=== PATIENT | male | born 1980 | race African-American/Black ===

== ENCOUNTER 2018-11-05 20:51 | Inpatient (IN) ==
[2018-11-05] MEDS ORDERED: NS 1,000 ML IV ONE (21:19)
[2018-11-05] MEDS ORDERED: NS 500 ML IV ONE (21:19)
[2018-11-05] MEDS ORDERED: HUMULIN R IV ONE ×2 (21:22→23:23)
[2018-11-05 21:25] LABS: BLOOD TYPE ARTERIAL; SAMPLE BLOOD
[2018-11-05 21:26] LABS: BE -27.3 mmoll (-3.0-3.0); HCO3-(ACT) 3.6 mmoll (20.0-26.0); METHB 1.3 % (0.0-1.5); O2(CT) 16.9 mL/dL (15.0-23.0); O2HB 96.8 % (95.0-99.0); PO2(98.6) 159 mmHg (60-100); SAO2 99.8 % (95.0-100.0); THB 12.2 g/dL (11.5-17.4)
[2018-11-05 21:32] LABS: PCO2(98.6) 9 mmHg (35-45); pH(98.6) 6.99 (7.35-7.45)
[2018-11-05 21:33] LABS: ALLEN TEST YES; MODALITY ROOM AIR
--- NOTE | 2018-11-05 21:38 | PROVIDER DOCUMENTATION ---
This chart was entered by Jennifer Ybarra Scribe, acting as scribe for Raf Fry MD. HPI-General Adult - General Chief Complaint: High Blood Sugar Stated Complaint: HIGH BS, WEAK Time Seen by Provider: 11/05/18 21:07 Source: patient Allergies/Adverse Reactions: Patient Allergies Allergy/AdvReac Type Severity Reaction Status Date / Time Penicillins Allergy RASH Verified 08/17/14 04:13 Home Medications: Home Medication List Medication Instructions Recorded Confirmed Last Taken Type Insulin Aspart [Novolog] 100 unit SQ PRN PRN 08/17/14 11/05/18 Unknown History Insulin Detemir [Levemir] 15 units SQ DAILY 08/17/14 11/05/18 Unknown History - History of Present Illness -Gen Adult Nature of Presenting Problems: pt is 38/m presenting to ED w/ iddm. Pt was in hospital, in [facility]. until yesterday and flew home yesterday. He was told he was in DKA, was septic and has BS over 1000 in [place]. He was doing better, and today he started having c/p, SOB, vomiting and hyperventilating. FSBS in triage over 400. Location of Pain/Injury: reports: chest Pain Radiation: reports: no radiation Quality of Pain: reports: aching Severity: reports: moderate Onset/Duration: reports: just prior to arrival Timing: reports: still present Context/Activities at Onset: reports: none Modifying Factors: improves with: nothing Associated Symptoms: reports: chest pain, loss of appetite, shortness of breath, vomiting, weakness. denies: cough, fever/chills Similar Symptoms Previously?: Yes Recently seen or treated by another doctor?: Yes - Diabetes Related Context Context: reports: high blood sugar (400+), prior DKA hospitalization Review of Systems - Adult - REVIEW OF SYSTEMS - ADULT Constitutional: denies: chills, fever Eyes: reports: no symptoms reported Ears, Nose, Mouth & Throat: reports: no symptoms reported Cardiovascular: reports: chest pain Respiratory: reports: shortness of breath. denies: cough, wheezing Gastrointestinal: reports: nausea, vomiting. denies: abdominal pain, diarrhea Genitourinary: reports: no symptoms reported Musculoskeletal: reports: no symptoms reported Integumentary: reports: no symptoms reported Neurological: denies: dizziness/vertigo, headache/migraines Psychiatric: reports: no symptoms reported Endocrine: reports: no symptoms reported Hematologic/Lymphatic: reports: no symptoms reported Allergic/Immunologic: reports: no symptoms reported All Other Systems: Reviewed and Negative Past History - Adult - PAST MEDICAL HISTORY-ADULT Review of Records: reports: Old Records Reviewed, Nursing Assessment Review, Medications Reviewed, Social history reviewed & non-contributory. Major Childhood Illnesses: reports: denies history Cardiovascular: reports: denies history Respiratory: reports: denies history Gastrointestinal: reports: denies history Genitourinary: reports: denies history Musculoskeletal: reports: denies history Neurological: reports: denies history, other (diabetic neuropathy) Psychiatric: reports: denies history Endocrine/Immune: reports: Diabetes Other Conditions: reports: denies history - PRIOR SURGERIES/PROCEDURES Surgical/Procedure History: reports: orthopedic (extremity) - FAMILY HISTORY Family History: reviewed, not pertinent - SOCIAL HISTORY Smoking: denies, non-smoker Substance Use: none/never Alcohol Use Frequency: occasionally Number of drinks per typical drinking period:: 2 drinks Living Situation: family Physical Exam-General - PHYSICAL EXAM-ADULT Initial Vital Signs Reviewed: Yes - CONSTITUTIONAL General Appearance: moderate distress, thin, other (pt is grimacing, hyperventilating at time of exam) - EYES Eyes: PERRL/EOMI, pink conjunctivae - HEAD, EARS, NOSE, MOUTH & THROAT HENMT: negative: moist mucous membranes (DRY) - NECK Neck: non-tender, full range of motion, supple, normal inspection - RESPIRATORY Respiratory: chest non-tender, lungs clear, increased rate - CARDIOVASCULAR Cardiovascular: tachycardia (117) - GASTROINTESTINAL (ABDOMEN) Abdominal Exam: soft - LYMPHATIC Lymphatic: no adenopathy - MUSCULOSKELETAL Back Exam: normal inspection, no CVA tenderness, no vertebral tenderness Extremity: normal range of motion, non-tender, normal gait, normal inspection - SKIN Integumentary: normal color, warm/dry - NEUROLOGIC Neurologic: grossly normal - PSYCHIATRIC Psych/Mental Status: normal mood/affect, normal thought content, normal thought process, oriented x 3 Progress - PLAN OF CARE/RESULTS Progress/Plan/Lab Results: Vital Signs - 8 hr 11/05/18 20:55 Pulse Rate 117 H Respiratory Rate 33 H Blood Pressure 144/94 O2 Sat by Pulse Oximetry 99 Orders Category Date Time Status Finger Stick Blood Sugar (ED) DIRECTED Care 11/05/18 21:04 Active IV Insertion ORDERED Care 11/05/18 21:19 Ordered Intake and Output-Strict ORDERED Care 11/05/18 21:19 Ordered Nursing- Obtain EKG ONCE Care 11/05/18 21:04 Active Repeat Vital Signs .Blood Pressure Care 11/05/18 21:19 Ordered Repeat Vital Signs .Heart Rate Care 11/05/18 21:19 Ordered Repeat Vital Signs .Oxygen Saturation Care 11/05/18 21:19 Ordered Repeat Vital Signs .Respiratory Rate Care 11/05/18 21:19 Ordered ABG [RESP] Routine Lab 11/05/18 21:04 Ordered CBC WITH DIFF [HEME] Stat Lab 11/05/18 21:04 Ordered COMPREHENSIVE METABOLIC PANEL [CHEM] Stat Lab 11/05/18 21:[address] W/POSS RFLX CULT [URINALYSIS] Stat Lab 11/05/18 21:04 Uncollected EKG [EKG] Stat Ther 11/05/18 21:04 Ordered Result Diagrams: 11/05/18 21:04 11/05/18 21:58 - XRAY 1 XRAY Study: Chest, Abdomen XRAY Interpretation: difuse bowel gas, no infiltrates, no free air Departure - Departure Date of Disposition Decision: 11/06/18 Time of Disposition Decision: 02:00 DIAGNOSIS: DKA (diabetic ketoacidoses) Qualifiers: Diabetes mellitus type: type 2 Diabetes mellitus complication detail: without coma Qualified Code(s): E11.10 - Type 2 diabetes mellitus with ketoacidosis without coma Nausea and vomiting Qualifiers: Vomiting type: vomiting of fecal matter Qualified Code(s): R11.13 - Vomiting of fecal matter Disposition: ADMITTED INPATIENT 09 Certified Medical Emergency: Emergent Condition: Serious - Critical Care Note This patient required my direct & personal management of CC.: Yes Total Time (mins): 61 Critical Care Statement: This patient required my direct personal management to treat or rule out processes, the absence of which, could potentiallly result in sudden, clinically significant life or limb threatening deterioration. Attestation - Physician/ MANDY Attestation Patient care was provided by Advanced Practice Provider:: No The physician spent face to face time with patient:: Yes Advanced Practice Provider documentation review:: Supervising physician onsite and consulted in the evaluation and care of this patient. The physician did have a face to face encounter with the patient. This chart was documented by the indicated scribe, (Jennifer Ybarra, Dale) and accurately reflects the services I performed and decisions made by me, Raf Fry MD, as attested by the provider's signature.
[2018-11-05] MEDS ORDERED: LEVAQUIN 750 MG/D5W 750 MG/150 ML IVPB IV ONE (22:11)
[2018-11-05 22:24] LABS: BASO# 0.01 X1000 (0.0-0.2); BASO% 0.1 % (0.0-0.8); HEMATOCRIT 35.8 % (42.0-52.0); HEMOGLOBIN 11.6 g/dL (14.0-18.0); IMM GRAN# 0.13 X1000 (0.0-0.04); IMM GRAN% 1.1 % (0.0-0.5); LYMPH# 1.22 X1000 (1.2-3.4); LYMPH% 10.3 % (20.5-51.1); MCH 28.5 PG (27-31); MCHC 32.4 g/dL (33-37); MONO# 0.05 X1000 (0.11-0.59); MONO% 0.4 % (1.7-9.3); MPV 10.4 FL (7.4-10.4); NEUT# 10.41 X1000 (1.4-6.5); NEUT% 88.1 % (42.2-75.2); PLT 430 X1000 (130-400); RBC 4.07 XMIL (4.7-6.1); RDW 12.5 % (11.5-14.5); WBC 11.82 X1000 (4.8-10.8)
[2018-11-05 22:34] LABS: BILIRUBIN URINE NEGATIVE (NEGATIVE); BLOOD URINE 1+ (NEGATIVE); KETONE URINE 3+(Large) mg/dL (NEGATIVE); LEUKOCYTES URINE TRACE (NEGATIVE); NITRITE URINE POSITIVE (NEGATIVE); PROTEIN URINE 1+(30 mg/dL) mg/dL (NEGATIVE); SP GRAVITY URINE 1.025; UROBILINOGEN URINE NORMAL
[2018-11-05 22:35] LABS: CLARITY CLEAR (CLEAR); COLOR YELLOW
[2018-11-05 22:36] LABS: URINE BACTERIA 1+ /HFP; URINE EPITHELIAL CELLS <10 /HPF (<10); URINE RBC <10 /HPF (<10); URINE SOURCE CLEAN CATCH; URINE WBC <10 /HPF (<10)
[2018-11-05 22:49] LABS: ESTIMATED GFR > 60
--- NOTE | 2018-11-05 22:51 | EKG Report ---
Test Performed on : 11/05/2018 9:16:29 PM Test Reason : tachycardi hx arrythmia Blood Pressure : / mmHG Vent. Rate : 109 BPM Atrial Rate : 109 BPM P-R Int : 142 ms QRS Dur : 094 ms QT Int : 342 ms P-R-T Axes : 072 070 026 degrees QTc Int : 460 ms Sinus tachycardia. Otherwise normal ECG No previous ECGs available Unconfirmed Result
[2018-11-05 22:52] LABS: AGAP 39; ALBUMIN 4.2 g/dL (3.5-5.0); ALKALINE PHOSPHATASE 98 U/L (32-122); BUN 31 mg/dL (8-22); CALCIUM 11.1 mg/dL (8.8-10.2); CHLORIDE 91 mmol/L (98-107); COSMO 294; CREATININE 1.2 mg/dL (0.7-1.2); GOT 44 U/L (10-34); GPT 25 U/L (10-44); POTASSIUM 5.9 mmol/L (3.5-5.1); SODIUM 132 mmol/L (136-145); TCO2 3 mmol/L (25-35); TOTAL PROTEIN 7.7 g/dL (6.3-8.3)
[2018-11-05 22:55] LABS: GLUCOSE 507 mg/dL (70-104)
[2018-11-05] MEDS ORDERED: NS 2,000 ML ONE (23:29)
[2018-11-05] MEDS ORDERED: NS 1,000 ML, NS 1,000 ML IV ONE ×2 (23:41)
[2018-11-06] MEDS: NS 1,000 ML IV SCH ×8 (01:55→20:17)
[2018-11-06 03:22] LABS: HEMOGLOBIN A1C 16.4 % (4.8-6.0)
[2018-11-06] MEDS ORDERED: POTASSIUM CHLORIDE 20% LIQUID PO PRN (03:30)
[2018-11-06] MEDS ORDERED: POTASSIUM CHLORIDE 10% LIQUID PO PRN (03:30)
[2018-11-06] MEDS ORDERED: SODIUM BICARBONATE 8.4% 100 MEQ in STERILE WATER INJ. 500 ML IV PRN (03:30)
[2018-11-06] MEDS ORDERED: SODIUM PHOSPHATE 30 MMOL in D5W 250 ML IV PRN (03:30)
[2018-11-06] MEDS ORDERED: POTASSIUM CHLORIDE 40 MEQ/SWI 40 MEQ/100 ML IVPB IV PRN (03:30)
[2018-11-06] MEDS ORDERED: D50W SYRINGE IV PRN (03:30)
[2018-11-06] MEDS ORDERED: ZOFRAN PO PRN (03:30)
[2018-11-06] MEDS ORDERED: HUMULIN R IV ONE (03:30)
[2018-11-06] MEDS ORDERED: HUMULIN R 100 UNIT in NS 99 ML IV SCH (03:30)
[2018-11-06 03:51] LABS: AGAP 25; BUN 28 mg/dL (8-22); CALCIUM 9.6 mg/dL (8.8-10.2); CHLORIDE 107 mmol/L (98-107); COSMO 289; CREATININE 1.1 mg/dL (0.7-1.2); ESTIMATED GFR > 60; GLUCOSE 247 mg/dL (70-104); MAGNESIUM 2.1 mg/dL (1.5-2.7); PHOSPHORUS 4.7 mg/dL (2.7-4.5); POTASSIUM 5.5 mmol/L (3.5-5.1); SODIUM 138 mmol/L (136-145); TCO2 6 mmol/L (25-35)
[2018-11-06] MEDS: D5 NS 1,000 ML IV SCH ×3 (04:33→20:37)
[2018-11-06 06:52] LABS: MAGNESIUM 1.9 mg/dL (1.5-2.7); PHOSPHORUS 2.5 mg/dL (2.7-4.5)
[2018-11-06 07:03] LABS: AGAP 19; BUN 24 mg/dL (8-22); CALCIUM 9.4 mg/dL (8.8-10.2); CHLORIDE 110 mmol/L (98-107); COSMO 280; ESTIMATED GFR > 60; GLUCOSE 76 mg/dL (70-104); SODIUM 139 mmol/L (136-145); TCO2 10 mmol/L (25-35)
--- NOTE | 2018-11-06 07:28 | Diag Imaging Result Doc PS360 ---
EXAM: FLAT/UPRIGHT ABD/1 VIEW CHEST 11/05/2018 HISTORY: nausea, vomiting TECHNIQUE: Flat and upright abdomen with PA chest COMMENT: There are no previous studies. The stomach contains some gas but is not particularly distended. There is some gas in the colon particularly the hepatic flexure. There is gaseous dilatation of some small bowel loops in the upper abdomen. There are calcifications in the vasa deferentia. No evidence of organomegaly or mass is present. The lungs are clear aside from some calcified granulomata in the left upper lobe. There is a calcified aorticopulmonary window node. The heart size and pulmonary vascularity are within normal limits. IMPRESSION: Ileus versus early small bowel obstruction. Electronically signed by Pio Mora 11/06/2018 7:26 AM
[2018-11-06] MEDS: POTASSIUM CHLORIDE 20 MEQ/SWI 20 MEQ/100 ML IVPB IV PRN (08:43)
[2018-11-06] MEDS: ZOFRAN IV PRN ×2 (10:28→18:56)
[2018-11-06 11:07] LABS: MAGNESIUM 1.6 mg/dL (1.5-2.7); PHOSPHORUS 1.6 mg/dL (2.7-4.5)
[2018-11-06 11:23] LABS: AGAP 12; BUN 20 mg/dL (8-22); CALCIUM 9.2 mg/dL (8.8-10.2); CHLORIDE 110 mmol/L (98-107); COSMO 279; CREATININE 0.9 mg/dL (0.7-1.2); ESTIMATED GFR > 60; GLUCOSE 145 mg/dL (70-104); POTASSIUM 4.7 mmol/L (3.5-5.1); SODIUM 137 mmol/L (136-145); TCO2 14 mmol/L (25-35)
[2018-11-06] MEDS ORDERED: KLOR-CON PO ONE (13:04)
[2018-11-06] MEDS ORDERED: ZOFRAN ODT PO PRN (13:41)
[2018-11-06 13:56] LABS: AGAP 10; BUN 18 mg/dL (8-22); CALCIUM 8.9 mg/dL (8.8-10.2); CHLORIDE 110 mmol/L (98-107); COSMO 275; CREATININE 0.9 mg/dL (0.7-1.2); ESTIMATED GFR > 60; GLUCOSE 126 mg/dL (70-104); MAGNESIUM 1.6 mg/dL (1.5-2.7); PHOSPHORUS 1.4 mg/dL (2.7-4.5); POTASSIUM 4.5 mmol/L (3.5-5.1); SODIUM 136 mmol/L (136-145); TCO2 16 mmol/L (25-35)
[2018-11-06] MEDS: MAGNESIUM SULFATE 2 GM/S.W.I. 2 GM/50 ML IVPB IV PRN (14:15)
[2018-11-06] MEDS ORDERED: DULCOLAX PR SCH (17:15)
[2018-11-06 18:18] LABS: SODIUM 137 mmol/L (136-145)
[2018-11-06 18:19] LABS: AGAP 9; BUN 17 mg/dL (8-22); CALCIUM 8.6 mg/dL (8.8-10.2); CHLORIDE 111 mmol/L (98-107); COSMO 276; CREATININE 0.9 mg/dL (0.7-1.2); ESTIMATED GFR > 60; GLUCOSE 106 mg/dL (70-104); PHOSPHORUS 1.1 mg/dL (2.7-4.5); POTASSIUM 4.4 mmol/L (3.5-5.1); TCO2 17 mmol/L (25-35)
[2018-11-06 22:09] LABS: AGAP 8; BUN 14 mg/dL (8-22); CALCIUM 8.5 mg/dL (8.8-10.2); CHLORIDE 110 mmol/L (98-107); COSMO 273; CREATININE 0.8 mg/dL (0.7-1.2); ESTIMATED GFR > 60; GLUCOSE 143 mg/dL (70-104); POTASSIUM 4.5 mmol/L (3.5-5.1); SODIUM 135 mmol/L (136-145); TCO2 18 mmol/L (25-35)
[2018-11-06 22:12] LABS: MAGNESIUM 1.9 mg/dL (1.5-2.7)
[2018-11-07 01:19] LABS: AGAP 10; BUN 12 mg/dL (8-22); CALCIUM 8.5 mg/dL (8.8-10.2); CHLORIDE 109 mmol/L (98-107); COSMO 273; CREATININE 0.8 mg/dL (0.7-1.2); ESTIMATED GFR > 60; GLUCOSE 93 mg/dL (70-104); MAGNESIUM 1.8 mg/dL (1.5-2.7); POTASSIUM 3.8 mmol/L (3.5-5.1); SODIUM 137 mmol/L (136-145); TCO2 18 mmol/L (25-35)
[2018-11-07 01:23] LABS: PHOSPHORUS 0.8 mg/dL (2.7-4.5)
[2018-11-07] MEDS: POTASSIUM CHLORIDE 20 MEQ/SWI 20 MEQ/100 ML IVPB IV PRN ×2 (02:08→07:58)
[2018-11-07] MEDS: D5 NS 1,000 ML IV SCH (02:09)
--- NOTE | 2018-11-07 02:34 | HISTORY AND PHYSICAL ---
PRIMARY CARE PHYSICIAN: Dr. Flanagan. CHIEF COMPLAINT: Weakness, high blood sugar. HISTORY OF PRESENT ILLNESS: This is a 38-year-old gentleman with a history of diabetes mellitus who presented to the emergency room complaining of abdominal pain, nausea and vomiting as well as high blood sugars. The patient states that he was in the hospital in [place], [place], until the , diagnosed with DKA as well as sepsis. He did state blood sugars were over 1000 on admission. On discharge, he was told that his sepsis was resolved although he is unaware of the source of the sepsis. He denies any fevers or chills. He comes today after flying home from [place] complaining of elevated blood sugars, general weakness, nausea and vomiting. PAST MEDICAL HISTORY: 1. Insulin-dependent diabetes mellitus. 2. Peripheral neuropathy. PAST SURGICAL HISTORY: Fracture of right leg repair. SOCIAL HISTORY: He denies illicit drugs or tobacco use. He does drink alcohol. ALLERGIES: Penicillin which causes a rash. HOME MEDICATIONS: A list will be obtained by the nursing staff and once verified we will review and restart as is appropriate. REVIEW OF SYSTEMS: Discussed with patient with pertinent positives stated in the HPI. He denied any syncope or dizziness, any palpitations, a productive cough, any fevers or chills, any night sweats, recent weight loss or weight gain, any black or bloody vomitus or stools, any diarrhea, constipation, any hematuria, dysuria, frequency, urgency. PHYSICAL EXAMINATION: GENERAL: This is a 38-year-old gentleman who is lying on the bed in ICU in no distress. VITAL SIGNS: Blood pressure is 110/69 with a heart rate of 98, respirations are 16, temperature is 98 degrees with room air saturations 99 to 100. EYES: Pupils equal, round, react to light. EOMs are intact. Sclerae are anicteric. HEENT: Head is normocephalic, atraumatic. Mucous membranes are moist. NECK: Supple with trachea midline. CARDIOVASCULAR: Regular rate and rhythm. S1 and S2 are appreciated. He has no murmur. He has no lower extremity edema. Peripheral pulses are palpable x4 extremities and calves are nontender to palpation bilaterally. PULMONARY: Breath sounds are clear with no increased work of breathing noted. Chest rises and falls symmetric with respiration. Chest wall is nontender to palpation. GASTROINTESTINAL: Abdomen is soft, nontender, nondistended with bowel sounds in all 4 quadrants. GENITOURINARY: He has no CVA nor suprapubic tenderness. SKIN: Warm and dry. NEUROLOGIC: He is alert and oriented x3. LABS: WBC is 11.8 with hemoglobin 11.6, hematocrit 35.8, platelets of 430,000. Sodium is 139, potassium 5, BUN 24, creatinine 1 with a glucose of 76, phosphorus 2.5, magnesium 1.9. Admission labs: Sodium 132, potassium 5.9, anion gap is 39 with a CO2 of 3, BUN 31, creatinine 1.2 with a blood sugar of 507, calcium is 11.1. ABGs, pH on admission pH was 6.9 with a pCO2 of 9, PO2 of 159, and a bicarbonate of 3.6. This is on room air. Lactate was 5.7. Abdominal x-ray reveals ileus versus early small bowel obstruction. ASSESSMENT AND PLAN: 1. Diabetic ketoacidosis. The patient has been admitted to ICU and placed on telemetry. He will be under DKA protocol. 2. Insulin-dependent diabetes mellitus with hyperglycemia. Hemoglobin A1c was 16.4. 3. Ileus versus early small-bowel obstruction. The patient will be NPO. We will give IV hydration, give Dulcolax q.6 hours to stimulate peristalsis. We will repeat a flat and upright in the morning. 4. Leukocytosis. 5. Hyponatremia. 6. Hyperkalemia. 7. Hypercalcemia. 8. Low phosphorus. Trend electrolytes and replete as is appropriate. CBC, CMP, magnesium and phosphorus in the morning. Further treatments pending hospital course. Dictated by EBONY Bernardo for Mike Thakur MD cc: EBONY Bernardo MD [facility]
--- NOTE | 2018-11-07 02:35 | HISTORY AND PHYSICAL ---
ADDENDUM: Patient seen and examined by myself. Full note dictated and discussed with nurse practitioner. Patient presented to the hospital with elevated blood sugars and acidosis. He actually was just in the hospital for sepsis and was treated and discharged home. Unsure of what has caused his marked elevation in his acidosis at this point. Urine and blood cultures were clear so far. Therefore, we will not start on antibiotics. His white count is 11. We will treat his blood sugars otherwise. cc: Mike Thakur MD
[2018-11-07] MEDS ORDERED: MAALOX PLUS LIQUID PO PRN (05:43)
[2018-11-07] MEDS: NS 1,000 ML IV SCH ×2 (05:50→10:49)
[2018-11-07 06:44] LABS: MAGNESIUM 1.7 mg/dL (1.5-2.7); PHOSPHORUS 1.1 mg/dL (2.7-4.5)
[2018-11-07 06:52] LABS: BASO# 0.01 X1000 (0.0-0.2); BASO% 0.1 % (0.0-0.8); EOS# 0.04 X1000 (0.0-0.7); EOS% 0.4 % (0.0-10.0); HEMATOCRIT 27.7 % (42.0-52.0); HEMOGLOBIN 9.6 g/dL (14.0-18.0); IMM GRAN# 0.01 X1000 (0.0-0.04); IMM GRAN% 0.1 % (0.0-0.5); LYMPH# 2.19 X1000 (1.2-3.4); LYMPH% 23.5 % (20.5-51.1); MCH 28.2 PG (27-31); MCHC 34.7 g/dL (33-37); MCV 81.5 FL (81-99); MONO# 0.72 X1000 (0.11-0.59); MONO% 7.7 % (1.7-9.3); MPV 9.8 FL (7.4-10.4); NEUT# 6.36 X1000 (1.4-6.5); NEUT% 68.2 % (42.2-75.2); PLT 334 X1000 (130-400); WBC 9.33 X1000 (4.8-10.8)
[2018-11-07 07:08] LABS: AGAP 10; BUN 11 mg/dL (8-22); CHLORIDE 110 mmol/L (98-107); COSMO 274; GLUCOSE 112 mg/dL (70-104); POTASSIUM 4.2 mmol/L (3.5-5.1); SODIUM 137 mmol/L (136-145); TCO2 18 mmol/L (25-35)
[2018-11-07 07:09] LABS: ALBUMIN 3.1 g/dL (3.5-5.0); ALKALINE PHOSPHATASE 60 U/L (32-122); CALCIUM 8.6 mg/dL (8.8-10.2); CREATININE 0.8 mg/dL (0.7-1.2); ESTIMATED GFR > 60; GOT 25 U/L (10-34); GPT 17 U/L (10-44); TOTAL PROTEIN 5.4 g/dL (6.3-8.3)
[2018-11-07] MEDS: MAGNESIUM SULFATE 2 GM/S.W.I. 2 GM/50 ML IVPB IV PRN (07:58)
--- NOTE | 2018-11-07 09:02 | Diag Imaging Result Doc PS360 ---
EXAM: ABDOMEN FLAT/UPRIGHT 11/07/2018 HISTORY: ileus TECHNIQUE: Flat and upright abdomen COMMENT: The bowel gas pattern is nonspecific. There are calcifications in the vasa deferentia. There is no evidence of organomegaly or mass. There is generally less gas present throughout the large and small bowel than on 11/05/2018. IMPRESSION: Improved ileus. Electronically signed by Pio Mora 11/07/2018 8:59 AM
[2018-11-07] MEDS ORDERED: LEVEMIR INSULIN *HA SUBQ SCH (09:15)
[2018-11-07 17:42] VITALS: BP 160/82
--- NOTE | 2018-11-08 05:01 | DISCHARGE SUMMARY ---
ADMISSION DATE: 11/06/2018 DISCHARGE DATE: 11/07/2018 DIAGNOSES: 1. Diabetic ketoacidosis, resolved. 2. Insulin-dependent diabetes mellitus with hyperglycemia in a patient with an A1c of 16.4. 3. Ileus versus small-bowel obstruction, improving. 4. Leukocytosis, resolved. 5. Hyponatremia, resolved. 6. Hyperkalemia, resolved. 7. Electrolyte imbalance. DIAGNOSTICS: 1. Abdominal x-ray on 11/05/2018 revealed ileus versus small-bowel obstruction. 2. Abdominal x-ray 11/07/2018 reveals improved ileus. Bowel gas pattern is nonspecific. There is generally less gas throughout the large and small bowel. There is no evidence of organomegaly or mass. MICROBIOLOGY: Urine culture revealed no growth. HOSPITAL COURSE: Mr. Duran presented to the emergency room complaining of weakness and high blood sugar. He was found to be in DKA. He had previously been hospitalized in [place], [place], with DKA and sepsis. He was discharged on the . He flew home and presented to this emergency room and was found to be in DKA. He was treated with DKA protocol. Thankfully, this has resolved and at this time blood sugars are remaining in the 110s to 120s range. Electrolytes were followed and treated per protocol. He was found to have an ileus versus small-bowel obstruction. He was initially held NPO, given Dulcolax to stimulate peristalsis. He began to have bowel movements. At first, they were liquid. He is now having soft bowel movements. He was able to eat a diabetic diet today with no abdominal pain, nausea, vomiting. Thankfully, he has improved and is ready for discharge. DISCHARGE VITAL SIGNS: Blood pressure is 135/90 with a heart rate of 82, respirations are 16, temperature is 98 degrees, room air saturations are 100%. DISCHARGE PHYSICAL EXAMINATION: Cardiovascular: Regular rate and rhythm. S1 and S2 appreciated. Pulmonary: Breath sounds clear no increased work of breathing noted. Gastrointestinal: Abdomen is soft, nontender, nondistended with bowel sounds in all 4 quadrants. Genitourinary: He has no CVA nor suprapubic tenderness. Neurologic: He is alert and oriented x3. Skin: Warm and dry. DISCHARGE MEDICATIONS: 1. NovoLog FlexPen 15 units subcutaneous as directed. 2. Levemir Flex Touch 15 units subcutaneous daily. FOLLOWUP: He is to follow up with Dr. Flanagan. He needs to call in the morning to schedule an appointment to be seen this week. He has been instructed to call to be seen sooner or return to the ER for any chest pain, palpitations, syncope, dizziness, shortness of breath, cough, temperature greater than 101, any chills, nausea, vomiting, diarrhea, constipation, black or bloody vomitus or stools, any hematuria, dysuria, frequency, urgency or for any questions or concerns that he may have. He is being discharged home in stable condition with family members. TIME SPENT: This is a greater than 30 minute discharge. Dictated by EBONY Bernardo for Mike Thakur MD cc: EBONY Bernardo MD Adnan A. Seljuki, MD
--- NOTE | 2018-11-08 05:35 | DISCHARGE SUMMARY ---
ADMISSION DATE: 11/06/2018 DISCHARGE DATE: 11/07/2018 ADDENDUM: Patient seen and examined by myself. Full note dictated and discussed with nurse practitioner. On discharge, patient is awake, alert. He is in no distress. Lactate has returned to normal. Bicarbonate and blood sugars are also improved. He was able to tolerate a full diet. Certainly would have preferred to transition him to the floor, continue to adjust his blood sugars as his home A1c was 16.4 which we discussed with him is on the bad side of terrible. He notes that he is out of his insulin. We did write him a prescription for his Levemir as well as Humalog pens. Made sure that he understood how to use them. Discussed diet modifications. TIME SPENT: Greater than 30 minutes was spent in total care. Please see full note. cc: Mike Thakur MD
== END 2018-11-07 17:30 | disposition home or self-care (01) | DRG 638 ==
LOC: SUPCPDRO → P.ED 20:51 → P.ICU 11-06 01:08
PROVIDERS: ATTEND Family Medicine
CPT/HCPCS: 74019; 74020; 74022; 80048; 80053; 81001; 82805; 82948; 83036; 83605; 83690; 83735; 84100; 85025; 87040; 87088; 93005; 96361; 96365; 99285; 99291; A9270; J1815; J1956; J2405; J3475; J3480; J7030; J7042; XXXXX